=== PATIENT | female | born 1965 | race Caucasian/White ===

== ENCOUNTER → 2016-08-03 | Outpatient (REF) | payer OTHER | LOC: M LAB REF 16:41 | PROVIDERS: ATTEND Neurological Surgery | DX: Z01.818 Encounter for other preprocedural examination (principal) ==

== ENCOUNTER → 2016-08-05 | Outpatient (CLI) | payer OTHER ==
--- NOTE | 2016-08-05 10:22 | REP ---
Clinical: Preoperative assessment . Comparison: None . Technique: PA and lateral. Findings: The mediastinum and cardiac silhouette are normal. Airway is midline and patent. The lung monroe are clear and without acute consolidation, effusion, or pneumothorax. The skeletal structures are intact and normal. Impression: 1. No acute cardiopulmonary process. Signed by Magdi Wei MD 08/05/2016 10:14 A
[2016-08-05 10:32] LABS: BASO % 0.7 % (0.0-1.0); EOS # 0.2 K/mm3 (0.0-0.50); LARGE UNSTAINED CELL # 0.1 K/mm3 (0.0-0.4); LARGE UNSTAINED CELL % 1.9 % (0.0-4.0); LYMPH # 2.8 K/mm3 (1.5-4.5); LYMPH % 37.5 % (24.0-44.0); MEAN CORPUSCULAR VOLUME 88.3 fl (80.0-96.0); MONO # 0.4 K/mm3 (0.0-0.8); MONO % 5.6 % (0.0-5.0); NEUTROPHILS # 3.8 K/mm3 (1.8-7.7); NEUTROPHILS % 51.4 % (36.0-66.0); PLATELET COUNT, AUTOMATED 227 k/mm3 (150-450); RED CELL DISTRIBUTION WIDTH 12.7 % (11.5-14.5); WHITE BLOOD COUNT 7.4 K/mm3 (4.0-10.0)
[2016-08-05 10:39] LABS: INR 0.97
[2016-08-05 11:01] LABS: ALBUMIN/GLOBULIN RATIO 1.25 (1.00-1.93); ALKALINE PHOSPHATASE 107 U/L (45-117); ALT/SGPT 27 U/L (12-78); ANION GAP 6 MEQ/L (8-16); AST/SGOT 18 U/L (15-37); BILIRUBIN,TOTAL 0.3 MG/DL (0.2-1.0); BLOOD UREA NITROGEN 16 MG/DL (7-18); CARBON DIOXIDE LEVEL 27 MEQ/L (21-32); CHLORIDE LEVEL 109 MEQ/L (98-107); CREATININE FOR GFR 0.91 MG/DL (0.55-1.02); GLOMERULAR FILTRATION RATE > 60.0 (>51); GLUCOSE, FASTING 84 MG/DL (70-105); POTASSIUM SERUM 4.4 MEQ/L (3.5-5.1); SODIUM LEVEL 142 MEQ/L (136-145); TOTAL PROTEIN 7.2 GM/DL (6.4-8.2)
--- NOTE | 2016-08-05 19:57 | ECGEPIP ---
Stationary ECG Study [facility] Test Date: 2016-08-05 Pat Name: REX ZAMARRIPA Department: Room: - Gender: F Demand Inspector: DAYANNA : 1965 Requested By: GIANFRANCO Vines Order Number: [id number] Reading MD: Andrea Ortiz Measurements Intervals [place] Rate: 64 P: 36 MN: 165 QRS: 51 QRSD: 86 T: 40 QT: 377 QTc: 390 Interpretive Statements SINUS RHYTHM Nonspecific ST-T abnormalities. No prior ECG available for comparison at the time of interpretation. Electronically Signed On 08-05-2016 19:56:41 EDT by Andrea Ortiz
== END ==
LOC: M LAB 09:47
PROVIDERS: ATTEND Neurological Surgery
DX: Z01.818 Encounter for other preprocedural examination (principal)

== ENCOUNTER → 2016-08-08 | Outpatient (CLI) | payer OTHER ==
[2016-08-08 14:13] LABS: COLLAGEN ADP 101 SECONDS (56-103)
== END ==
LOC: M LAB 13:01
PROVIDERS: ATTEND Neurological Surgery
DX: Z01.818 Encounter for other preprocedural examination (principal)

== ENCOUNTER → 2016-08-15 | Outpatient (CLI) | payer OTHER ==
[~2016-08-15] MED LIST: ALEV220C2 PO
== END ==
LOC: M LAB 18:28
PROVIDERS: ATTEND Neurological Surgery
DX: Z01.818 Encounter for other preprocedural examination (principal)

== ENCOUNTER → 2016-08-17 | Day surgery (SDC) | payer OTHER ==
[~2016-08-17] VITALS: Ht 165.1 cm; Wt 81.6 kg
[~2016-08-17] MED LIST changes: +CLINDAMYCIN 900 MG in APPROPRIATE DILUENT 1 EA IV ONE; +KETOROLAC 60 MG/2 ML VIAL (J1885) As Ordered ONE; +LIDOCAINE 1% SDV INJ 30 ML VIAL As Ordered ONE; +LIDOCAINE 2% INJ 100 MG/5 ML SDV (FOR ANES.) As Ordered ONE; +LR 1,000 ML IV SCH; +MIDAZOLAM INJ 2 MG/2 ML VIAL (J2250) As Ordered ONE; +NORCO, ANEXSIA 5/325MG TABLET (HYDROcodone/ACETAMINOPHEN) PO PRN; +ONDANSETRON 4MG/2ML VIAL (J2405) As Ordered ONE; +PERCOCET 5MG/325MG TAB PO PRN; +PROPOFOL 200 MG/20 ML VIAL As Ordered ONE; +dexameTHASONE 4 MG/ML 1ML VIAL (J1100) As Ordered ONE; +fentaNYL 100 MCG/2 ML INJECTION (J3010) As Ordered ONE; +methylPREDNISolone SUSP 40 MG/ML (DEPO-medrol) VIAL (J1030) As Ordered ONE
[2016-08-17] MEDS: fentaNYL 100 MCG/2 ML INJECTION (J3010) IV PRN ×4 (09:02→09:35)
--- NOTE | 2016-08-17 09:55 | RO ---
DATE OF PROCEDURE: 08/17/2016 PREPROCEDURE DIAGNOSIS: Left carpal tunnel syndrome. POSTPROCEDURE DIAGNOSIS: Left carpal tunnel syndrome. PROCEDURE: Release of left carpal tunnel and external neurolysis of median nerve. SURGEON: Dr. Simon Hernandez. AUDIOVISUAL TECHNICIAN: None. ANESTHESIA: General tourniquet. ESTIMATED BLOOD LOSS: Findings: Please see my office notes for detailed preoperative evaluation and discussions. Patient had clinical and electrodiagnostic evidence of carpal tunnel syndrome. Patient was seen in the preoperative area with her . Patient was aware of all options, risks, scope, expected outcome and sequel, and all possible complications of the surgery and understood it is a salvage procedure, and understands not all of her symptoms can be readily explained on her EMG and CT findings, thus not all may be addressed. Patient and are aware of followup instructions. Patient understands risk of surgery include that persistence or worsening of symptoms and/or deficits, failure of surgery, loss of vital bodily functions, development of RSD, need for multiple surgeries and/or any catastrophic sequel. Patient claimed there is no way she is willing to live with these symptoms, and is willing to run any or all risks for any possible benefit. I answered her questions. After all matters pertaining to surgery, anesthesia and followup care had been discussed with her again, she was taken to the operating room at her request. Once in the operating room, general anesthesia was given by the anesthesia service. The patient was scheduled for surgery with nerve block and conscious sedation though patient and the anesthesiologist mutually decided to change it to general anesthesia. The area of surgery was prepped and draped in the usual sterile fashion. A tourniquet was applied and using the Esmarch dressing after she has been prepped and draped in the usual sterile fashion, the left upper extremity was exsanguinated and tourniquet was applied at 280 mmHg. A skin incision was given distal to the wrist crease along one of the palmar creases. Alveolar layer was reached and incised, cut edges of the blood vessels were coagulated with bipolar cautery. Palmaris longus tendons were . Thenar and hypothenar muscles were stripped off the flexor retinaculum which was then incised in its entirety. There was nodular hypertrophy of the flexor retinaculum more distally. Also there were multiple adhesions of the median nerve and these adhesions were lysed. Complete decompression of the medial nerve was achieved. At this time, the wound was closed in two layers. Patient tolerated the procedure well and was transferred to the recovery room in stable condition after findings were discussed with patient's . They both had written and verbal followup instructions.
[2016-08-17 10:25] VITALS: BP 135/80
== END | disposition home or self-care (01) ==
LOC: M SDC 06:00
PROVIDERS: ATTEND Neurological Surgery
DX: G56.02 Carpal tunnel syndrome, left upper limb (principal); R51 Headache; Z90.710 Acquired absence of both cervix and uterus; M54.81 Occipital neuralgia; Q07.00 Arnold-Chiari syndrome without spina bifida or hydrocephalus; M47.892 Other spondylosis, cervical region; M47.896 Other spondylosis, lumbar region; E66.9 Obesity, unspecified; R06.83 Snoring; F17.210 Nicotine dependence, cigarettes, uncomplicated; Z88.0 Allergy status to penicillin
CPT/HCPCS: 64721; J1030; J1100; J1885; J2250; J2405; J3010

== ENCOUNTER → 2017-08-28 | Outpatient (REF) | payer OTHER ==
[2017-08-28 11:33] LABS: HEMATOCRIT 48.2 % (36.0-47.0); HEMOGLOBIN 16.2 g/dl (12.0-15.5); MEAN CORPUSCULAR HEMOGLOBIN 29.3 pg (27.0-33.0); MEAN CORPUSCULAR HGB CONC 33.6 g/dl (32.0-36.5); MEAN CORPUSCULAR VOLUME 87.3 fl (80.0-96.0); PLATELET COUNT, AUTOMATED 233 10^3/uL (150-450); RED BLOOD COUNT 5.52 10^6/uL (4.00-5.40)
[2017-08-28 11:42] LABS: INR 0.92; PROTHROMBIN TIME 12.4 SECONDS (12.4-14.5)
[2017-08-28 11:43] LABS: PARTIAL THROMBOPLASTIN TIME 31.3 SECONDS (26.8-37.9)
[2017-08-28 11:56] LABS: ANION GAP 10 MEQ/L (8-16); BLOOD UREA NITROGEN 21 MG/DL (7-18); CALCIUM LEVEL 9.8 MG/DL (8.5-10.1); CARBON DIOXIDE LEVEL 27 MEQ/L (21-32); CHLORIDE LEVEL 105 MEQ/L (98-107); CREATININE FOR GFR 0.94 MG/DL (0.55-1.30); GLOMERULAR FILTRATION RATE > 60.0 (>51); GLUCOSE, FASTING 87 MG/DL (70-100); POTASSIUM SERUM 4.4 MEQ/L (3.5-5.1); SODIUM LEVEL 142 MEQ/L (136-145)
== END ==
LOC: M SFHCPLAZ 09:09
DX: Z01.818 Encounter for other preprocedural examination (principal)
CPT/HCPCS: 80048

== ENCOUNTER 2017-09-22 10:23 | Day surgery (SDC) | payer OTHER ==
[2017-09-22] MEDS ORDERED: PROPOFOL 200 MG/20 ML VIAL As Ordered ×2 (10:36)
[2017-09-22] MEDS ORDERED: MIDAZOLAM INJ 2 MG/2 ML VIAL (J2250) As Ordered ×4 (10:36→12:33)
[2017-09-22] MEDS ORDERED: LIDOCAINE 2% INJ 100 MG/5 ML SDV (FOR ANES.) As Ordered ×2 (10:36)
[2017-09-22] MEDS ORDERED: fentaNYL 100 MCG/2 ML INJECTION (J3010) As Ordered ×6 (10:36→13:42)
[2017-09-22] MEDS: VANCOMYCIN HCL 1,000 MG, VIAL MATE ADAPTER 1 EACH in D5W 250 ML IV ×2 (10:45)
[2017-09-22] MEDS: EPINEPHrine 1MG/ML INJ 30ML MD-VIAL As Ordered ×2 (12:06)
[2017-09-22] MEDS: MIDAZOLAM INJ 2 MG/2 ML VIAL (J2250) IV ×4 (12:41→12:44)
[2017-09-22] MEDS: fentaNYL 100 MCG/2 ML INJECTION (J3010) IV ×4 (12:41→12:44)
[2017-09-22] MEDS ORDERED: ONDANSETRON 4MG/2ML VIAL (J2405) As Ordered ×2 (13:26)
[2017-09-22] MEDS ORDERED: dexameTHASONE 4 MG/ML 1ML VIAL (J1100) As Ordered ×2 (13:26)
[2017-09-22] MEDS ORDERED: ROPIvacaine 0.5% 30 ML INJECTION (J2795 PER 1MG) (13:59)
[2017-09-22] MEDS: LIDOCAINE 1% MDV 20ML VIAL INFIL ×2 (14:21)
[2017-09-22] MEDS ORDERED: fentaNYL 100 MCG/2 ML INJECTION (J3010) (14:36)
[2017-09-22] MEDS ORDERED: LABETALOL HCL 100 MG/20 ML VIAL (14:37)
[2017-09-22] MEDS ORDERED: PERCOCET 5MG/325MG TAB As Ordered ×2 (15:44)
[2017-09-22] MEDS: PERCOCET 5MG/325MG TAB PO ×4 (15:45→16:15)
[2017-09-22] MEDS ORDERED: NORCO, ANEXSIA 5/325MG TABLET (HYDROcodone/ACETAMINOPHEN) PO ×2 (16:00)
[2017-09-22] MEDS ORDERED: LR 1,000 ML IV ×4 (16:00)
[2017-09-22] MEDS ORDERED: ONDANSETRON 4MG/2ML VIAL (J2405) IV ×2 (16:00)
[2017-09-22] MEDS ORDERED: fentaNYL 100 MCG/2 ML INJECTION (J3010) IV ×2 (16:00)
== END 2017-09-22 18:05 | disposition home or self-care (01) ==
LOC: M SDC 10:23
DX: M75.41 Impingement syndrome of right shoulder (principal); M75.21 Bicipital tendinitis, right shoulder; M75.111 Incomplete rotator cuff tear or rupture of right shoulder, not specified as traumatic
CPT/HCPCS: 23430

== ENCOUNTER → 2018-04-04 | Outpatient (CLI) | payer OTHER ==
[~2018-04-04] MED LIST changes: -CLINDAMYCIN 900 MG in APPROPRIATE DILUENT 1 EA IV ONE; +IBUP1TAB7 PO; -KETOROLAC 60 MG/2 ML VIAL (J1885) As Ordered ONE; -LIDOCAINE 1% SDV INJ 30 ML VIAL As Ordered ONE; -LIDOCAINE 2% INJ 100 MG/5 ML SDV (FOR ANES.) As Ordered ONE; -LR 1,000 ML IV SCH; -MIDAZOLAM INJ 2 MG/2 ML VIAL (J2250) As Ordered ONE; -NORCO, ANEXSIA 5/325MG TABLET (HYDROcodone/ACETAMINOPHEN) PO PRN; -ONDANSETRON 4MG/2ML VIAL (J2405) As Ordered ONE; -PERCOCET 5MG/325MG TAB PO PRN; +PHEN15CA PO; -PROPOFOL 200 MG/20 ML VIAL As Ordered ONE; -dexameTHASONE 4 MG/ML 1ML VIAL (J1100) As Ordered ONE; -fentaNYL 100 MCG/2 ML INJECTION (J3010) As Ordered ONE; -methylPREDNISolone SUSP 40 MG/ML (DEPO-medrol) VIAL (J1030) As Ordered ONE
--- NOTE | 2018-04-05 17:25 | ECGEPIP ---
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
== END ==
LOC: M EKG 17:40
PROVIDERS: ATTEND Anesthesiology
DX: Z01.818 Encounter for other preprocedural examination (principal); R06.83 Snoring; I45.10 Unspecified right bundle-branch block

== ENCOUNTER 2018-04-13 05:31 | Day surgery (SDC) | payer OTHER ==
[~2018-04-13] VITALS: Ht 165.1 cm; Wt 80.9 kg
[2018-04-13] MEDS ORDERED: LIDOCAINE 1% MDV 20ML VIAL ONE (05:32)
[2018-04-13] MEDS ORDERED: ROPIvacaine 0.5% 30 ML INJECTION (J2795 PER 1MG) ONE (05:32)
[2018-04-13] MEDS ORDERED: dexameTHASONE 10 MG/1 ML VIAL PRES.FREE (J1100) ONE (05:32)
[2018-04-13] MEDS ORDERED: LR 1,000 ML IV ONE (06:00)
[2018-04-13] MEDS ORDERED: VANCOMYCIN HCL 1,000 MG, VIAL MATE ADAPTER 1 EACH in D5W 250 ML IV ONE (06:00)
[2018-04-13] MEDS ORDERED: fentaNYL 100 MCG/2 ML INJECTION (J3010) As Ordered ONE ×2 (06:49→07:00)
[2018-04-13] MEDS ORDERED: MIDAZOLAM INJ 2 MG/2 ML VIAL (J2250) As Ordered ONE ×2 (06:49→07:00)
[2018-04-13] MEDS ORDERED: LIDOCAINE 2% INJ 100 MG/5 ML SDV (FOR ANES.) As Ordered ONE (06:59)
[2018-04-13] MEDS ORDERED: ONDANSETRON 4MG/2ML VIAL (J2405) As Ordered ONE (06:59)
[2018-04-13] MEDS ORDERED: ROCURONIUM BROMIDE 50 MG/5 ML VIAL As Ordered ONE (06:59)
[2018-04-13] MEDS ORDERED: dexameTHASONE 4 MG/ML 1ML VIAL (J1100) As Ordered ONE (06:59)
[2018-04-13] MEDS ORDERED: EPINEPHrine 1MG/ML INJ 30ML MD-VIAL As Ordered ONE (06:59)
[2018-04-13] MEDS ORDERED: PROPOFOL 200 MG/20 ML VIAL As Ordered ONE (06:59)
[2018-04-13] MEDS: MIDAZOLAM INJ 2 MG/2 ML VIAL (J2250) IV PRN ×2 (07:22→07:24)
[2018-04-13] MEDS: fentaNYL 100 MCG/2 ML INJECTION (J3010) IV PRN ×2 (07:23→07:25)
[2018-04-13] MEDS ORDERED: SUGAMMADEX SODIUM 500 MG/5 ML VIAL (BRIDION) As Ordered ONE (08:25)
[2018-04-13] MEDS ORDERED: fentaNYL 100 MCG/2 ML INJECTION (J3010) IV PRN (11:15)
[2018-04-13] MEDS ORDERED: PERCOCET 5MG/325MG TAB PO PRN (11:15)
[2018-04-13] MEDS ORDERED: LR 1,000 ML IV SCH ×2 (11:15)
[2018-04-13] MEDS ORDERED: ONDANSETRON 4MG/2ML VIAL (J2405) IV PRN (11:15)
[2018-04-13 12:32] VITALS: BP 131/80
--- NOTE | 2018-04-13 12:54 | RO ---
DATE OF PROCEDURE: 04/13/2018 PREOPERATIVE DIAGNOSES: 1. Right shoulder partial thickness rotator cuff tear. 2. Right shoulder impingement. POSTOPERATIVE DIAGNOSES: 1. Right shoulder partial thickness rotator cuff tear. 2. Right shoulder impingement. 3. Right shoulder chondromalacia. PROCEDURE: 1. Right shoulder arthroscopic rotator cuff repair, including subscapularis. 2. Right shoulder extensive debridement, including labral debridement, chondroplasty and subacromial decompression with acromioplasty. SURGEON: Dr. Gabriel Wang STRAPPER OPERATOR: FELICITA Viera ANESTHESIA: General, preoperative nerve block. IV FLUIDS: Lactated Ringer's. ESTIMATED BLOOD LOSS: 1 mL IMPLANTS: Arthrex 4.75 mm Peak SwiveLock anchor times five. CLOSURE: Nylon. PROCEDURE: Patient identified in the preoperative holding area. The right shoulder was marked by myself. She had an interscalene nerve block. She is brought to the operating room, placed supine on a well-padded OR table with a beanbag. General anesthesia was induced. Exam under anesthesia revealed 107 degrees of forward flexion, 90 of external rotation with arm at her side. No increased anterior or posterior translation. She was placed in the left side down, lateral decubitus position with an axillary roll and all bony prominences were well padded. Bilateral Venodyne boots for deep vein thrombosis (DVT) prophylaxis. She received appropriate IV antibiotics within 1 hour of incision. Beanbag was deflated. She was secured the OR table. The right arm was placed into Arthrex star sleeve lateral decubitus traction device with 10 pounds of traction. The right shoulder was then prepped and draped in a normal sterile fashion with Chloraprep. Prior to incision, a time-out performed per hospital protocol. Stacy Ramirez was present for the entire procedure and participated in all essential portions of the procedure. This included patient positioning, draping, holding the arthroscope, retrieving sutures, using the mallet and awl to create sockets and placing anchors and the wound closure. The right shoulder was insufflated with lactated Ringer's. Standard posterior viewing portal made with the 11-blade. 30 degrees arthroscope introduced into the joint. The patient previously underwent a biceps tenodesis. There was some tearing of the anterior, superior, as well as a posterior labral tearing. That was free edge tearing. Grade 2 chondromalacia in the posterior humeral head, grade 1 to 2 in the glenoid. The posterior rotator cuff was intact. There was partial articular tear of the entire supraspinatus extending into the infraspinatus seen at the initial surgery and this had slightly progressed. There was tearing of the upper one-third of the subscapularis with lift off during the posterior lever push maneuver. An anterior working portal was established through the rotator interval. Purple Arthrex cannula placed. I determined that there was enough tearing of the subscapularis to warrant a repair given that she also was getting a supraspinatus repair. An accessory superolateral portal was created and the shaver used to clear soft tissue off the lesser tuberosity, to debride the leading edge tearing of the subscapularis and to remove about 2 mm of articular cartilage adjacent to the lesser tuberosity to increase the footprint. The scorpion was used to pass tiger tape through the upper one-third of the subscapularis through healthier tissue medial to the tear. Those sutures were then retrieved out the initial anterior portal, loaded through 4.75 mm Peak SwiveLock anchor. An awl was used to create a socket in the lesser tuberosity. The anchor was docked, sutures tensioned, anchor malleted and then inserted by hand with excellent fixation. Sutures cut with arthroscopic stone cutter per routine. This completed subscapularis repair. The arthroscope was placed into the subacromial space where there was moderate bursitis. A lateral working portal was established and I performed a bursectomy with shaver and cautery. The acromion was skeletonized. There was not a large spur, but to remove any remaining sources for pain I did perform a formal acromioplasty with a bur, turning this into a type 1 morphology. I had previously marked the anterior and posterior aspects of the partial articular tear by placing spinal needles percutaneously through the subacromial space. The spinal needles were identified noting the anterior and posterior aspects of the tear. The switching stick was used to palpate the bursal fibers within that area of the tear and this area progressed since the initial surgery. Therefore, I used the cautery to turn this into a full-thickness tear. The shaver and ring curette were used to clear soft tissue off the greater tuberosity to create a bleeding surface. This was a fairly large anterior to posterior tear involving the entire supraspinatus extending into the anterior infraspinatus. This was amendable to a double row repair. Arthrex speed bridge kit was opened. Punch was used to create a socket and then placed 4.75 mm Peak SwiveLock anchor in the anterior portion of the tuberosity. The sutures were cut to allow them to be passed individually. I passed with the scorpion through the far anterior and then the mid anterior portions of the tear in a horizontal mattress fashion. The second anchor was placed further posterior but also closed the articular surface, and again those were passed individually for a total of four passes of tape. There were no pending dog ears. The far anterior tiger and Fiber Tape sutures were retrieved out the cannula laterally and loaded through 475 SwiveLock and the cannula was used to determine the appropriate place for the anterolateral anchor. The awl was used to create a socket. The anchor was docked, sutures tensioned and the anchor malleted and inserted by hand with excellent fixation. This was repeated with the posterior tapes for the fourth and final anchor of the speed bridge. This recreated the box and X configuration. There were no dog ears. The shoulder was rotated and gently abducted and adducted and there was no lift off. I completed the double row repair. The shoulder was irrigated and drained. Portals closed with nylon suture and then a bulky sterile dressing applied. She was carefully placed into an ARC-2 sling, extubated, transferred to the postanesthesia care unit (PACU) in stable condition.
== END 2018-04-13 12:41 | disposition home or self-care (01) ==
LOC: M SDC 05:31
PROVIDERS: ATTEND Orthopaedic Surgery
DX: M75.111 Incomplete rotator cuff tear or rupture of right shoulder, not specified as traumatic (principal); M75.41 Impingement syndrome of right shoulder; M94.211 Chondromalacia, right shoulder; F17.210 Nicotine dependence, cigarettes, uncomplicated; Z88.0 Allergy status to penicillin
CPT/HCPCS: 29823; 29826; 29827; 64415; C1713; J1100; J2250; J2405; J2795; J3010; J3370